=== PATIENT | female | born 1970 | race Caucasian/White ===

== ENCOUNTER → 2018-02-09 21:37 | Outpatient (CLI) | payer MEDICAID, SELFPAY ==
[2018-02-09 22:12] LABS: EST Glomerular Filtration Rate 56 mL/min (>60); Est Glom Filt Rate - Afr Amer 68 mL/min (>60)
[2018-02-09 22:13] LABS: Gentamicin, Conv. Trough 1.3 ug/mL (<2.0)
== END ==
DX: Z79.899 Other long term (current) drug therapy (principal)
CPT/HCPCS: 80170; 82565

== ENCOUNTER → 2018-02-14 18:56 | Outpatient (CLI) | payer MEDICAID, SELFPAY ==
[2018-02-14 19:55] LABS: Creatinine, Serum 0.87 mg/dL (0.55-1.02); EST Glomerular Filtration Rate 73 mL/min (>60); Est Glom Filt Rate - Afr Amer 89 mL/min (>60)
[2018-02-14 19:58] LABS: Gentamicin,Once Daily Trough 1.3 ug/mL (<1.0)
== END ==
PROVIDERS: Family Provider Family Medicine; PCP Family Medicine
DX: N15.1 Renal and perinephric abscess (principal)
CPT/HCPCS: 80170; 82565